=== PATIENT | male | born 1980 | race Caucasian/White ===

== ENCOUNTER 2017-02-23 19:22 | Emergency (ER) | payer MEDICARE, MEDICAID ==
--- NOTE | 2017-02-23 20:21 | Emergency Department Record ---
History of Present Illness - General Chief complaint: ENT Stated complaint: SINUS INFECTION Time Seen by Provider: 02/23/17 20:20 Source: Patient Mode of Arrival: Ambulatory - History of Present Illness Initial comments: One week sinus pressure, post nasal drip, now eyes are mattering green in the corners History of sinus infections and this feels like prior ones. Chills no fevers, no stiff neck, rashes, cp tara, ap. Onset/Timin -: Week(s) Severity scale (1-10): 4 Quality: Aching, Burning Consistency: Constant Improves with: Other medication Worsens with: Other - Related Data Home Medications Medication Instructions Recorded Confirmed Last Taken Duloxetine HCl [Cymbalta] 60 mg PO BID 02/23/17 02/23/17 02/23/17 Hydrocodone/Acetaminophen [[place] 1 each PO BID PRN 02/23/17 02/23/17 02/23/17 10-325 Tablet] Lacosamide [Vimpat] 50 mg PO BID 02/23/17 02/23/17 02/23/17 Lacosamide [Vimpat] 200 mg PO BID 02/23/17 02/23/17 02/23/17 Methadone HCl 10 mg PO TID 02/23/17 02/23/17 02/23/17 Phenytoin Sodium Extended 350 mg PO QHS 02/23/17 02/23/17 02/23/17 [Dilantin] Prednisone 5 mg PO DAILY PRN 02/23/17 02/23/17 02/22/17 Pregabalin [Lyrica] 225 mg PO BID 02/23/17 02/23/17 02/23/17 Secukinumab [Cosentyx Syringe] 150 mg SQ ASDIR 02/23/17 02/23/17 02/18/17 Tizanidine HCl [Zanaflex] 4 mg PO TID 02/23/17 02/23/17 02/23/17 Trazodone HCl 100 mg PO QHS 02/23/17 02/23/17 02/23/17 Previous Rx's Medication Instructions Recorded Azithromycin [Zithromax] 500 mg PO DAILY #10 tab 02/23/17 Allergies Allergy/AdvReac Type Severity Reaction Status Date / Time infliximab [From Remicade] Allergy seizures Verified 02/23/17 19:52 Penicillins Allergy RASH Verified 02/23/17 19:52 Travel Screening - Travel/Exposure Within Last 30 Days Have you traveled within the last 30 days?: No - Travel Symptoms Symptom Screening: None Review of Systems Reviewed: No additional complaints except as noted below Constitutional: Reports: As per HPI. Denies: Chills, Fever, Malaise, Night sweats, Weakness, Weight change Eyes: Reports: As per HPI. Denies: Eye discharge, Eye pain, Photophobia, Vision change ENT: Reports: As per HPI. Denies: Congestion, Dental pain, Ear pain, Epistaxis , Hearing loss, Throat pain Respiratory: Reports: As per HPI. Denies: Cough, Dyspnea, Hemoptysis, Stridor, Wheezes Cardiovascular: Reports: As per HPI. Denies: Arrhythmia, Chest pain, Dyspnea on exertion, Edema, Murmurs, Orthopnea, Palpitations, Paroxysmal nocturnal dyspnea, Rheumatic Fever, Syncope Endocrine: Reports: As per HPI. Denies: Fatigue, Heat or cold intolerance, Polydipsia, Polyuria Gastrointestinal: Reports: As per HPI. Denies: Abdominal pain, Constipation, Diarrhea, Hematemesis, Hematochezia, Melena, Nausea, Vomiting Genitourinary: Reports: As per HPI. Denies: Dysuria, Frequency, Hematuria, Incontinence, Retention, Testicular pain, Testicular mass, Urgency Musculoskeletal: Reports: As per HPI. Denies: Arthralgia, Back pain, Gout, Joint swelling, Myalgia, Neck pain Skin: Reports: As per HPI. Denies: Bruising, Change in color, Change in hair/ nails, Lesions, Pruritus, Rash Neurological: Reports: As per HPI. Denies: Abnormal gait, Confusion, Headache, Numbness, Paresthesias, Seizure, Tingling, Tremors, Vertigo, Weakness Psychiatric: Reports: As per HPI. Denies: Anxiety, Auditory hallucinations, Depression, Homicidal thoughts, Suicidal thoughts, Visual hallucinations Hematological/Lymphatic: Reports: As per HPI. Denies: Anemia, Blood Clots, Easy bleeding, Easy bruising, Swollen glands Past Medical History - SOCIAL HISTORY Smoking Status: Former smoker Drug Use: None - RESPIRATORY Hx Respiratory Disorders: Yes Hx Sleep Apnea: Yes Hx of CPAP: Yes - CARDIOVASCULAR Hx Cardio Disorders: Yes Hx Irregular Heartbeat: Yes (MVP) - NEURO Hx Neuro Disorders: Yes Hx Seizures: Yes (since 2003) Comment:: Complex sensory partial seizures - GI Hx GI Disorders: Yes Hx Reflux: Yes - Hx Genitourinary Disorders: No - ENDOCRINE Hx Endocrine Disorders: No - MUSCULOSKELETAL Hx Musculoskeletal Disorders: Yes Hx Arthritis: Yes (RA; Ankylosing spondylitis) Hx Fibromyalgia: Yes Comment:: calcification around sciatic nerve.; Eyes Kerotikonis - PSYCH Hx Psych Problems: Yes Hx Anxiety: Yes Hx Depression: Yes - HEMATOLOGY/ONCOLOGY Hx Hematology/Oncology Disorders: No Family Medical History Any Significant Family History?: Yes Family Hx Comment (NOT TO BE USED IN PLACE OF ITEMS BELOW): mom and Grandfather- auto immune issues-RA, ankylosing spondylitis Hx Cancer: Grandparents Hx Diabetes: Grandparents Hx Heart Disease: Grandparents Hx HTN: Father Physical Exam - General General Appearance: Alert, Oriented x3, Cooperative, No acute distress - Head Head exam: Normal inspection - Eye Eye exam: Normal appearance, PERRL Pupils: Normal accommodation - ENT ENT exam: Normal exam, Mucous membranes moist, Normal external ear exam, Normal orophraynx, TM's normal bilaterally Ear exam: Normal external inspection. negative: External canal tenderness Nasal Exam: Normal inspection. negative: Discharge, Sinus tenderness Mouth exam: Normal external inspection, Tongue normal Teeth exam: Normal inspection. negative: Dental caries Throat exam: Normal inspection. negative: Tonsillar erythema, Tonsillar exudate - Neck Neck exam: Normal inspection, Full ROM. negative: Tenderness - Respiratory Respiratory exam: Normal lung sounds bilaterally. negative: Respiratory distress - Cardiovascular Cardiovascular Exam: Regular rate, Normal rhythm, Normal heart sounds - GI/Abdominal GI/Abdominal exam: Soft, Normal bowel sounds. negative: Tenderness - Rectal Rectal exam: Deferred - exam: Deferred - Extremities Extremities exam: Normal inspection, Full ROM, Normal capillary refill. negative: Tenderness - Back Back exam: Reports: Normal inspection, Full ROM. Denies: Muscle spasm, Rash noted, Tenderness - Neurological Neurological exam: Alert, Normal gait, Oriented X3, Reflexes normal - Psychiatric Psychiatric exam: Normal affect, Normal mood - Skin Skin exam: Dry, Intact, Normal color, Warm Course Vital Signs 02/23/17 19:43 Temperature 98.6 F Pulse Rate [ 66 Pulse Ox Probe] Respiratory 22 Rate Blood Pressure 148/85 [Left Arm] Pulse Ox 96 Disposition Disposition: Discharge Clinical Impression: Sinusitis Qualifiers: Sinusitis location: pansinusitis Chronicity: acute Recurrence: recurrent Qualified Code(s): J01.41 - Acute recurrent pansinusitis Disposition: Home, Self-Care Condition: (1) Good Instructions: Sinusitis (ED) Additional Instructions: Take antibiotics until gone. Zithromax high dose with 1 refill. Tylenol as directed as needed Follow up wih PCP. Prescriptions: Azithromycin [Zithromax] 500 mg PO DAILY #10 tab Quality - Quality Measures Quality Measures: Adult Sinusitis - Adult Sinusitis: CT Use Quality Measure: Measure #333: Adult Sinusitis Adult Sinusitis: CT for Acute Sinusitis: < CT NOT ordered or received within 28 Days > [G9349] - Blood Pressure Screening Blood Pressure Classification: Pre-Hypertensive BP Reading Systolic Measurement: 148 Diastolic Measurement: 85 Screening for High Blood Pressure: < Normal BP, F/U Not Required > [G8783] Normal BP Follow-up Interventions: No follow-up required
[2017-02-23] MEDS ORDERED: AZITHROMYCIN 500 MG TABLET PO ONE (21:10)
== END 2017-02-23 21:32 | disposition home or self-care (01) ==
LOC: ER 19:22
DX: J01.41 Acute recurrent pansinusitis (principal)
CPT/HCPCS: 99282